=== PATIENT | female | born 1960 | race Hispanic/Latino ===

== ENCOUNTER 2018-03-30 06:03 | Day surgery (SDC) | payer OTHER ==
[2018-03-23 13:56] VITALS: BMI 34.4
[2018-03-30] MEDS ORDERED: Lactated Ringer's 1,000 ML IV ONE ×2 (06:55→13:32)
--- NOTE | 2018-03-30 07:56 | CARD ---
APPROVED REPORT EKG Measurement Heart [id number] 138P34 [id number] <Conclusion> Normal sinus rhythm Nonspecific T wave abnormality Abnormal ECG
--- NOTE | 2018-03-30 08:13 | CP.SDSHP ---
Same Day Surgery H & P - History Proposed Procedure: Right thumb trigger finger release Pre-Op Diagnosis: Right thumb trigger finger - Previous Medical/Surgical History Cardiac: Hypertension Pain: 6.Severe Pain Previous Surgical History: L shoulder arthroscopic rotator cuff repair, R wrist ganglionic cyst removal - Allergies Allergies: Allergies No Known Allergies Allergy (Verified 08/21/14 18:58) - Current Medications Current Medications: lisinopril/HCTZ, metoprolol - Physical Exam General Appearance: NAD Vital Signs: Vital Signs 03/30/18 03/30/18 06:31 06:33 Temperature 98.9 F Pulse Rate 80 80 Respiratory 20 Rate Blood Pressure 125/66 O2 Sat by Pulse 97 Oximetry Mental Status: Alert & Oriented x3 Neuro: WNL Heart: WNL Lungs: WNL GI: WNL Social History: Smoking, Alcohol - {Optional Preform as Required} Abdomen: WNL Integument: WNL Ortho: WNL (R thumb flexion contracture, mild tenderness) ENT: WNL - Impression Impression: Patient is a 57 y/o female with right thumb trigger finger presenting for elective trigger finger release. Risks/benefits of procedure were explained in detail. Patient expresses understanding and agrees to proceed. Pt. Evaluated Today:Candidate for Anesthesia & Procedure: Yes - Date & Time Date: 03/30/18 Time: 08:14 Short Stay Discharge - Short Stay Discharge Admitting Diagnosis/Reason for Visit: M65.311 Disposition: HOME/ ROUTINE Referrals: Delfino Harrison MD [Primary Care Provider] -
[2018-03-30] MEDS ORDERED: Dexamethasone 4 mg/1 ml ONE (10:46)
[2018-03-30] MEDS ORDERED: methylPREDNISolone Depo 80 mg/ml Inj ONE (10:46)
[2018-03-30] MEDS ORDERED: Lidocaine 2% Inj (20ml) ONE (10:47)
[2018-03-30] MEDS ORDERED: ceFAZolin IV 2 gm in Dextrose 2 GM/50 ML BAG IVPB ONE (10:47)
[2018-03-30] MEDS ORDERED: Bacitracin Ointment 30 GM TUBE ONE (10:48)
[2018-03-30] MEDS ORDERED: Propofol 10 mg/ml Inj (20 ML) ONE (11:31)
[2018-03-30] MEDS ORDERED: Midazolam 2 MG/2 ML VIAL ONE (11:31)
[2018-03-30] MEDS ORDERED: Sevoflurane - Inhalation Anesthetic Liq (250 ml) ONE (11:33)
[2018-03-30] MEDS ORDERED: Oxycodone/Acetaminophen 5/325 mg Tab PO PRN (12:46)
[2018-03-30] MEDS ORDERED: Bupivacaine 0.25% 50 ML INJ IJ ONE (12:56)
[2018-03-30] MEDS ORDERED: Lactated Ringer's 1,000 ML IV SCH (13:15)
[2018-03-30] MEDS ORDERED: HYDROmorphone 0.5 mg/0.5 ml ISec IVP PRN (13:15)
--- NOTE | 2018-03-30 13:47 | PCM.SURG1 ---
Surgeon's Initial Post Op Note - Surgeon's Notes Surgeon: Matthew Director Payer: OLGA LIDIA Posada Type of Anesthesia: General Endo Anesthesia Administered By: DR jimenez Pre-Operative Diagnosis: trigger thumb R. CMC joint arthritis R 1st CMC joint. wrist arthritis R wrist Operative Findings: as above. tenosynovitis FPL (thumb)/ stenosing tenovaginits R thumb Post-Operative Diagnosis: as above Operation Performed: Release triggere thumb. partial tenosynovectomy FPL. intrarticular injefction CMC joi9nt 1st. intraarticular injection radio carpal joint Specimen/Specimens Removed: synovium/Ci cinthia R thumb Estimated Blood Loss: EBL {In ML}: 0 Blood Products Given: N/A Drains Used: No Drains Post-Op Condition: Good Date of Surgery/Procedure: 03/30/18 Time of Surgery/Procedure: 12:35 (time in room/aneatsheisa indcution time 11:40)
[2018-03-30] MEDS ORDERED: Oxycodone/Acetaminophen 5/325 mg Tab PO ONE (15:45)
[2018-03-30 15:53] VITALS: RESP 18; O2SAT 96
[2018-03-30 17:07] VITALS: BP 108/76; PULSE 68; TEMP 98.1
--- NOTE | 2018-04-03 19:57 | OP ---
PROCEDURE DATE: 03/30/2018 PREOPERATIVE DIAGNOSES: 1. Right trigger thumb 2. Carpometacarpal joint arthritis, right first carpometacarpal joint. 3. Wrist arthritis. OPERATIVE FINDINGS: 1. Trigger thumb. 2. Stenosing tenovaginitis, right thumb. 3. Arthrosis, carpometacarpal joint. 4. Wrist arthritis. OPERATIVE FINDINGS: As above. POSTOPERATIVE DIAGNOSES: 1. Right trigger thumb 2. Carpometacarpal joint arthritis, right first carpometacarpal joint. 3. Wrist arthritis. OPERATIONS PERFORMED: 1. Release of trigger thumb. 2. Partial tenosynovectomy, flexor pollicis longus. 3. Intra-articular injection, carpometacarpal joint. 4. Intra-articular injection, radiocarpal joint. SPECIMENS REMOVED: Synovium, splint application. BLOOD LOSS: Essentially 1-2 mL. BLOOD PRODUCTS GIVEN: No blood products given. DRAINS: No drains. POSTOPERATIVE CONDITION: Good. TIME OF SURGERY: Time in the room, 12:35. Incision time, 12:35 p.m. Anesthesia induction time, 11:40. OPERATIVE INDICATION: Violet Robb is a 57-year-old woman, who has had a persistent trigger thumb. She has arthritic change in the carpometacarpal joint and in the radiocarpal joint. Pros, cons, risks, and benefits of trigger thumb release were discussed. This is the most prominent symptom complex this patient has. Although she has discomfort in the area of the carpometacarpal joint, we are not doing any procedure for the carpometacarpal joint today. Pros, cons, risks, and benefits of trigger thumb release were discussed. The possibility of nerve injury, mechanical failure, infection, secondary or tertiary surgery was discussed. The patient could no longer stand the discomfort. OPERATIVE PROCEDURE: After having obtained informed consent, after having identified side, site, and procedure and a critical pause/time-out, after the satisfactory induction of the anesthetic, the patient identified as Violet Robb, in the supine position with all bony prominences well padded. The right upper extremity was prepped and free draped in the usual fashion for upper extremity surgery. The tourniquet had been applied, but was not yet inflated. After exsanguinating the limb using a 4-inch Esmarch bandage, the tourniquet which had been applied was inflated to 250 mmHg. The operation was performed under loupe magnification. This having been accomplished, the point of maximal impulse was identified on the volar aspect in the area of the C1 cinthia. The patient has a marking put at C1 cinthia trigger thumb. Again, using eyeglass magnification, an incision was described just proximal to the proximal crease of the thumb. Skin incision was carried down through the skin and subcutaneous tissue. The dissection was carried out with a hemostat. Vein retractors were placed and there was found be evidence of a marked stenosis of the FPL at the area of the C1 cinthia. Using a #15 blade very carefully, a trapezoid of tissue was removed from the area of the C1 cinthia. This having been accomplished, the C1 cinthia was removed. A partial flexor tenosynovectomy was accomplished. Great care was taken to avoid injury to the digital nerves. The tendon was grasped using a snap and brought back into the wound and was found to be completely released. Partial tenosynovectomy of the flexor pollicis longus having been accomplished, the wound was thoroughly irrigated. Closure was with interrupted 3-0 Vicryl and 4-0 nylon. Intra-articular injection of Marcaine and Duramorph and Depo-Medrol was accomplished. At this point in time, the carpometacarpal joint was identified and an intra-articular injection of Marcaine and Depo-Medrol was accomplished. Furthermore, at the radiocarpal joint, an injection of Marcaine and Duramorph and Depo-Medrol was accomplished. Carlos Post compression dressing and volar splint were applied. Herman Castro MD
== END 2018-03-30 16:35 | disposition home or self-care (01) ==
LOC: H.OPSURG 06:03
PROVIDERS: ATTEND Orthopaedic Surgery
DX: M65.311 Trigger thumb, right thumb (principal); M19.031 Primary osteoarthritis, right wrist; M65.841 Other synovitis and tenosynovitis, right hand; I10 Essential (primary) hypertension
CPT/HCPCS: 20605; 26055; 26145; 88305; 93005; J0690; J1040; J1100; J1885; J2001; J2250; J2405; J2704; J3010; J7030; J7120

== ENCOUNTER 2018-04-17 08:04 | Observation (INO) | payer OTHER ==
[2018-04-17 08:04] VITALS: BMI 34.4
--- NOTE | 2018-04-17 08:20 | ED PDOC ---
Upper Extremity Pain/Injury Time Seen by Provider: 04/17/18 08:11 History Per: Patient Additional Complaint(s): S/p hand surgery with removal of sutures. Here with partial dehiscence of wound. Denies fever, redness or drainage. Past Medical History Vital Signs: Last Vital Signs Temp 98.2 F 04/17/18 08:08 Pulse 85 04/17/18 08:08 Resp 19 04/17/18 08:08 BP 131/79 04/17/18 08:08 Pulse Ox 97 04/17/18 08:08 - Medical History PMH: Anxiety, Bronchitis, Gastritis, HTN Denies: Chronic Kidney Disease - Family History Family History: States: Unknown Family Hx - Home Medications Home Medications: Ambulatory Orders Medication Instructions Recorded Lisinopril [Lisinopril] 20 mg PO DAILY 08/21/14 clonazePAM [Klonopin] 0.5 mg PO DAILY 08/21/14 Metoprolol Succinate [Toprol Xl] 50 mg DAILY 12/17/15 Ibuprofen [Motrin Tab] 600 mg PO Q6H PRN #20 tab 03/30/18 - Allergies Allergies/Adverse Reactions: Allergies Allergy/AdvReac Type Severity Reaction Status Date / Time No Known Allergies Allergy Verified 08/21/14 18:58 Review of Systems Constitutional: Negative for: Fever Musculoskeletal: Positive for: Other (Superficial wound dehiscence) Physical Exam - Physical Exam Appears: Positive for: Non-toxic, No Acute Distress Extremity: Positive for: Other (Right hand base of right thumb, flexor surface, superficial dehiscence, no deep structures exposed. No erythema or drainage.) - ECG O2 Sat by Pulse Oximetry: 97 Disposition - Clinical Impression Clinical Impression: Wound dehiscence - Patient ED Disposition Is Patient to be Admitted: Yes - Disposition Disposition Time: 08:29 Condition: FAIR - Pt Status Changed To: Hospital Disposition Of: Observation - POA Present On Arrival: None
[2018-04-17] MEDS ORDERED: Bupivacaine 0.25% Inj(30mL) ONE (09:00)
[2018-04-17] MEDS ORDERED: Lidocaine 2% w Epi 1:100,000 Inj IJ ONE (09:00)
--- NOTE | 2018-04-17 09:15 | CARD ---
APPROVED REPORT EKG Measurement Heart [id number] HI 138P41 [id number] <Conclusion> Normal sinus rhythm Normal ECG
--- NOTE | 2018-04-17 09:17 | CP.PCM.CON ---
History of Present Illness - History of Present Illness History of Present Illness: Orthopedic consultation Dr. Castro 57F s/p right thumb trigger release 03/30/2018, had sutures removed 04/14, complains that the wound opened up over the weekend, and she was instructed by Dr. Castro to go to the emergency room. She denies any ffever, chills, pain, drainage. She says it isn't red. Review of Systems - Review of Systems All systems: reviewed and no additional remarkable complaints except - Musculoskeletal Musculoskeletal: As Per HPI Past Patient History - Infectious Disease Hx of Infectious Diseases: None - Past Medical History & Family History Past Medical History?: Yes - Past Social History Smoking Status: Heavy Smoker > 10 Cigarettes Daily - CARDIAC Hx Hypertension: Yes - PULMONARY Hx Bronchitis: Yes - NEUROLOGICAL Hx Neurological Disorder: No - HEENT Hx HEENT Problems: No - RENAL Hx Chronic Kidney Disease: No - ENDOCRINE/METABOLIC Hx Endocrine Disorders: No - HEMATOLOGICAL/ONCOLOGICAL Hx Blood Disorders: No - INTEGUMENTARY Hx Dermatological Problems: No - MUSCULOSKELETAL/RHEUMATOLOGICAL Hx Musculoskeletal Disorders: No - GASTROINTESTINAL Hx Gastritis: Yes - GENITOURINARY/GYNECOLOGICAL Hx Genitourinary Disorders: No - PSYCHIATRIC Hx Anxiety: Yes Hx Substance Use: No - SURGICAL HISTORY Hx Surgeries: Yes Hx Arthroscopy: Yes (left shoulder) Hx Orthopedic Surgery: Yes (rotator cuff left) Other/Comment: cyst right hand-2014 - ANESTHESIA Hx Anesthesia: Yes Hx Anesthesia Reactions: No Hx Malignant Hyperthermia: No Meds Allergies/Adverse Reactions: Allergies Allergy/AdvReac Type Severity Reaction Status Date / Time No Known Allergies Allergy Verified 08/21/14 18:58 Physical Exam - Constitutional Appears: Well, No Acute Distress - Extremities Exam Additional comments: Right thumb: length of incision dehisced through skin layer. Noted fibrinous exudate at base. no odor. +ROM thumb all planes without pain. Non tender. No fluctuance palpable - Neurological Exam Neurological exam: Alert, Oriented x3 - Psychiatric Exam Psychiatric exam: Normal Affect, Normal Mood - Skin Skin Exam: Warm Additional comments: tiny serous drainage on dressing, minimal surrounding erythema, does not appear infected clinically Results - Vital Signs Recent Vital Signs: Last Vital Signs Temp 98.2 F 04/17/18 08:30 Pulse 85 04/17/18 08:30 Resp 16 04/17/18 08:30 BP 131/79 04/17/18 08:30 Pulse Ox 97 04/17/18 08:30 Assessment & Plan (1) Wound dehiscence Assessment and Plan: right thumb s/p trigger thumb 03/30/18 for OR for debridement and wound closure per Dr. Castro NPO labs for OR under local (patient had coffee 9am) Status: Acute
--- NOTE | 2018-04-17 09:21 | CP.PCM.HP ---
History of Present Illness - History of Present Illness History of Present Illness: Orthopedic consultation Dr. Castro 57F s/p right thumb trigger release 03/30/2018, had sutures removed 04/14, complains that the wound opened up over the weekend, and she was instructed by Dr. Castro to go to the emergency room. She denies any ffever, chills, pain, drainage. She says it isn't red. Present on Admission - Present on Admission Any Indicators Present on Admission: No Review of Systems - Review of Systems All systems: reviewed and no additional remarkable complaints except - Musculoskeletal Musculoskeletal: As Per HPI Past Patient History - Infectious Disease Hx of Infectious Diseases: None - Past Medical History & Family History Past Medical History?: Yes - Past Social History Smoking Status: Heavy Smoker > 10 Cigarettes Daily - CARDIAC Hx Hypertension: Yes - PULMONARY Hx Bronchitis: Yes - NEUROLOGICAL Hx Neurological Disorder: No - HEENT Hx HEENT Problems: No - RENAL Hx Chronic Kidney Disease: No - ENDOCRINE/METABOLIC Hx Endocrine Disorders: No - HEMATOLOGICAL/ONCOLOGICAL Hx Blood Disorders: No - INTEGUMENTARY Hx Dermatological Problems: No - MUSCULOSKELETAL/RHEUMATOLOGICAL Hx Musculoskeletal Disorders: No - GASTROINTESTINAL Hx Gastritis: Yes - GENITOURINARY/GYNECOLOGICAL Hx Genitourinary Disorders: No - PSYCHIATRIC Hx Anxiety: Yes Hx Substance Use: No - SURGICAL HISTORY Hx Surgeries: Yes Hx Arthroscopy: Yes (left shoulder) Hx Orthopedic Surgery: Yes (rotator cuff left) Other/Comment: cyst right hand-2014 - ANESTHESIA Hx Anesthesia: Yes Hx Anesthesia Reactions: No Hx Malignant Hyperthermia: No Meds Home Medications: Home Medication List Medication Instructions Recorded Confirmed Type Ibuprofen [Motrin Tab] 600 mg PO Q6 PRN #20 tab 04/17/18 Rx Allergies/Adverse Reactions: Allergies Allergy/AdvReac Type Severity Reaction Status Date / Time No Known Allergies Allergy Verified 08/21/14 18:58 Physical Exam - Constitutional Appears: Well, No Acute Distress - Respiratory Exam Respiratory Exam: NORMAL BREATHING PATTERN - Extremities Exam Additional comments: Right thumb: length of incision dehisced through skin layer. Noted fibrinous exudate at base. no odor. +ROM thumb all planes without pain. Non tender. No fluctuance palpable tiny serous drainage on dressing, minimal surrounding erythema, does not appear infected clinically - Neurological Exam Neurological exam: Alert, Oriented x3 - Psychiatric Exam Psychiatric exam: Normal Affect, Normal Mood - Skin Skin Exam: Dry, Warm Results - Vital Signs Recent Vital Signs: Last Vital Signs Temp 98.2 F 04/17/18 08:30 Pulse 85 04/17/18 08:30 Resp 16 04/17/18 08:30 BP 131/79 04/17/18 08:30 Pulse Ox 97 04/17/18 08:30 - Labs Result Diagrams: 04/17/18 09:00 04/17/18 09:00 Assessment & Plan (1) Wound dehiscence Assessment and Plan: right thumb s/p trigger thumb 03/30/18 for OR for debridement and wound closure per Dr. Castro NPO labs for OR under local (patient had coffee 9am) smoking cessation advised Status: Acute
[2018-04-17 09:24] LABS: BASO # 0.1 K/uL (0.0-0.2); BASO % 0.9 % (0.0-2.0); EOS # 0.2 K/uL (0.0-0.7); EOS % 2.3 % (0.0-4.0); LYMPH # 2.6 K/uL (1.0-4.3); LYMPH % 39.1 % (20.0-40.0); MEAN CELL VOLUME 91.5 fl (81.0-99.0); MEAN CORPUSCULAR HEMOGLOBIN 31.4 pg (27.0-31.0); MEAN CORPUSCULAR HGB CONC 34.3 g/dL (33.0-37.0); MEAN PLATELET VOLUME 8.8 fl (7.2-11.7); MONO # 0.4 K/uL (0.0-0.8); MONO % 6.1 % (0.0-10.0); NEUT # 3.4 K/uL (1.8-7.0); NEUT % 51.6 % (50.0-75.0); NRBC % 0.1 % (0.0-0.0); RBC 4.48 Mil/uL (3.80-5.20); WHITE BLOOD COUNT 6.6 K/uL (4.8-10.8)
[2018-04-17 10:03] LABS: ALB/GLOB RATIO 1.3 (1.0-2.1); ALBUMIN 3.9 g/dL (3.5-5.0); ALT/SGPT 32 U/L (9-52); AST/SGOT 20 U/L (14-36); BLOOD UREA NITROGEN 17 mg/dl (7-17); GFR AFRICAN-AMERICAN > 60; GFR NON-AFRICAN AMERICAN > 60
[2018-04-17] MEDS ORDERED: Lidocaine 2% Inj (20ml) IJ ONE ×2 (14:34)
[2018-04-17 15:15] VITALS: BP 112/55; PULSE 62; RESP 18; TEMP 98; O2SAT 99
[2018-04-17] MEDS ORDERED: Oxycodone/Acetaminophen 5/325 mg Tab PO PRN (15:40)
--- NOTE | 2018-04-17 17:15 | PCM.SURG1 ---
Surgeon's Initial Post Op Note - Surgeon's Notes Surgeon: Matthew Bicycle Racer: SHAY Sheffield Type of Anesthesia: Local Anesthesia Administered By: DR Castro(local anaethesia) Pre-Operative Diagnosis: wound dehiscience s/p release C1 cinthia Operative Findings: wound dehiscience s/p release trigger thumb Post-Operative Diagnosis: as above Operation Performed: incision/debridement thumb incision/irrigation. primary plastic closure Specimen/Specimens Removed: skin/subq tissue Estimated Blood Loss: EBL {In ML}: 5 Blood Products Given: N/A Drains Used: No Drains Post-Op Condition: Good Date of Surgery/Procedure: 04/17/18 Time of Surgery/Procedure: 14:35 (time in room 1405)
--- NOTE | 2018-04-20 10:56 | OP ---
PROCEDURE DATE: 04/17/2018 PREOPERATIVE DIAGNOSIS: Wound dehiscence right thumb. POSTOPERATIVE DIAGNOSIS: Wound dehiscence right thumb, aseptic. OPERATIVE PROCEDURES: 1. Excision of skin, subcutaneous tissue. 2. Irrigation and debridement. 3. Primary closure. SURGEON: Herman Castro MD LEAD FABRICATOR: GAIL Phan, certified registered nursing first crusher. ANESTHESIA: Local anesthesia. COMPLICATIONS: No complications. DRAINS: No drains. OPERATIVE INDICATION: Violet Robb is a 57-year-old woman who is now status post successful release of trigger thumb right several weeks ago. The patient presents the emergency room this morning with a wound dehiscence. There was no evidence of purulence. The patient was admitted as an emergency for irrigation, debridement, and primary closure. Pros, cons, risks, and benefits of surgical approach discussed. Possibility of infection, nerve injury, secondary or tertiary surgery was discussed. The patient can no longer withstand the discomfort. OPERATIVE PROCEDURE: After having obtained informed consent in the above fashion, after having identified the right side as the correct side, after having identified side, site and procedure, and a critical pause/time-out, after the satisfactory induction of the anesthetic, the patient identified as Violet Robb in the supine position with all bony prominences well padded. The right upper extremity was prepped and free draped in usual fashion for upper extremity surgery. The operation was performed under 2.0 eyeglass magnification. The tourniquet had been applied, but was not yet inflated. After sterilely prepping and draping, after having identified side, site and procedure and a critical pause/time-out, after the satisfactory induction of the anesthetic, the patient identified as Violet Robb in the supine position with all bony prominences well padded, the right upper extremity was prepped and free draped in usual fashion for upper extremity surgery. The operation being performed under eyeglass magnification using #15 blade. The skin incision is explored using #15 blade and the margins were excised. Hemostasis controlled and there was found to be no active bleeding or sepsis. The wound was thoroughly irrigated and debrided. Closure was primary with interrupted nylon suture. Compression dressing was applied. The circulatory status was intact and the patient is comfortable in recovery. Herman Castro MD [facility] # [id number]
== END 2018-04-17 15:47 | disposition home health service (06) ==
LOC: H.ER 08:04 → H.ERHOLD 08:29
PROVIDERS: ADMIT Orthopaedic Surgery; ATTEND Orthopaedic Surgery
DX: T81.30XA Disruption of wound, unspecified, initial encounter (principal); Y83.8 Other surgical procedures as the cause of abnormal reaction of the patient, or of later complication, without mention of misadventure at the time of the procedure; I10 Essential (primary) hypertension
CPT/HCPCS: 13160; 80053; 82948; 85025; 93005; 99285; G0378; J7030